=== PATIENT | female | born 1980 | race Two or more races ===

== ENCOUNTER 2017-05-13 17:37 | Inpatient (IN) | payer MEDICAID, MEDICARE ==
[2017-05-13 18:04] VITALS: BP 131/91
[2017-05-13] MEDS ORDERED: Albuterol/Ipratropium Neb 3 ML AERS HHN PRN (18:59)
[2017-05-13] MEDS ORDERED: KCL 20mEq/100mL Premix 20 MEQ/100 ML PIGGYBACK IV SCH (21:00)
[2017-05-13] MEDS ORDERED: Azithromycin 500 MG in Sodium Chloride 0.9% 250 ML IV SCH (21:00)
[2017-05-13] MEDS ORDERED: Cefepime 1 GM in Sodium Chloride 0.9% 50 ML IV SCH (21:00)
[2017-05-13] MEDS: Sodium Chloride 0.9% 1,000 ML IV SCH (21:10)
[2017-05-13] MEDS: Albuterol/Ipratropium Neb 3 ML AERS HHN SCH ×2 (21:55→23:35)
[2017-05-13] MEDS ORDERED: Potassium Chloride 20 mEq ER Tab PO ONE (23:13)
[2017-05-14] MEDS: Albuterol/Ipratropium Neb 3 ML AERS HHN SCH ×6 (03:21→23:09)
[2017-05-14] MEDS: Sodium Chloride 0.9% 1,000 ML IV SCH (06:45)
[2017-05-14 07:06] LABS: % BASOPHILS 0.1 % (0.0-2.0); % LYMPHOCYTES 15.1 % (20.0-50.0); % MONOCYTES 6.2 % (2.0-10.0); % NEUTROPHILS 76.6 % (40.0-80.0); EOSINOPHILE ABSOLUTE 0.2 Th/cmm (0.1-0.4); HEMOGLOBIN 12.8 gm/dL (12-16); LYMPHOCYTE ABSOLUTE 1.2 Th/cmm (1.5-3.0); MEAN CELL VOLUME 82.4 fl (81-100); MEAN CORPUSCULAR HEMOGLOBIN 27.4 pg (27.0-31.0); MEAN CORPUSCULAR HGB CONC 33.2 pg (28.0-36.0); MEAN PLATELET VOLUME 8.9 fl; MONOCYTE ABSOLUTE 0.5 Th/cmm (0.3-1.0); NEUTROPHILE ABSOLUTE 6.2 Th/cmm (1.8-8.0); RED BLOOD COUNT 4.69 Mil/cmm (3.80-5.10); RED CELL DISTRIBUTION WIDTH 12.7 % (11.5-20.0); WHITE BLOOD COUNT 8.1 Th/cmm (4.8-10.8)
[2017-05-14 07:16] LABS: HEMATOCRIT 38.6 % (41.0-60); PLATELET COUNT 226 Th/cmm (150-400)
[2017-05-14 07:29] LABS: ALBUMIN 3.4 gm/dL (3.7-5.3); ALKALINE PHOSPHATASE 179 U/L (34-104); BILIRUBIN,TOTAL 0.3 mg/dL (0.3-1.0); BUN - UREA NITROGEN 5 mg/dL (7-25); CALCIUM SERUM 8.9 mg/dL (8.6-10.3); CARBON DIOXIDE 25.1 mEq/L (21.0-31.0); CHLORIDE 109 mEq/L (98-107); CREATININE - SERUM 0.5 mg/dL (0.6-1.2); GFR AFRICAN-AMERICAN > 60.0 ml/min (>90); GFR NON AFRICAN-AMERICAN > 60.0 ml/min; GLUCOSE 119 mg/dL (70-105); MAGNESIUM 1.9 mg/dL (1.9-2.7); POTASSIUM SERUM 4.1 mEq/L (3.5-5.1); SGOT 19 U/L (13-39); SGPT/ALT 15 U/L (7-52); SODIUM SERUM 142 mEq/L (136-145); TOTAL PROTEIN,SERUM 6.7 gm/dL (6.0-8.3)
[2017-05-14] MEDS ORDERED: Magnesium Hydroxide (MOM) 30 mL UDC GT PRN (09:33)
[2017-05-14] MEDS: carBAMazepine 200 mg/10 mL UDC GT SCH ×2 (09:56→16:43)
[2017-05-14] MEDS: Docusate Sodium 100 mg/10 mL UD GT SCH (09:56)
[2017-05-14] MEDS: Pantoprazole 40 mg/Packet GT SCH (09:57)
[2017-05-14] MEDS: Multivitamin w/ Minerals Tab GT SCH (09:57)
[2017-05-14] MEDS: Levetiracetam 500 mg/5mL 5mL UDC GT SCH ×2 (10:20→16:43)
--- NOTE | 2017-05-14 11:05 | History & Physical ---
ADMIT DATE: CHIEF COMPLAINT: Shortness of breath, congestion, and fevers. HISTORY OF PRESENT ILLNESS: This is a 37-year-old female resident of [facility] who was transferred to [facility]'s ER given the above-mentioned complaints. It is unknown as to how long she had been having these symptoms, but at the ER, pertinent findings included an O2 sat of 86% on room air, temperature 100.6, lactic acid of 2.7, and a chest x-ray showing bibasilar atelectasis and possible infiltrates. Given insurance the issues, the patient was transferred last night to this facility and is currently residing in the telemetry crabtree. The patient has a history of mental retardation, quadriplegic, cerebral palsy, dysphagia, status post PEG, history of CHF, seizure disorder/epilepsy. Patient is not able to provide me with any history, but she is noticeably congested, on no apparent respiratory distress. PAST MEDICAL HISTORY: As noted above. PAST SURGICAL HISTORY: Includes a PEG placement. FAMILY HISTORY: Likely noncontributory. SOCIAL HISTORY: No tobacco, ETOH, or illicit drug usage. She lives at [facility] under the care of Dr. Kenney. ALLERGIES: NKDA. OUTPATIENT MEDICATIONS: DuoNeb every 4 hours p.r.n. for SOB, Keppra 1000 mg b.i.d., Tylenol every 4 hours p.r.n. for fever or pain, baclofen 10 mg t.i.d., calcium carbonate 1250 every day, Tegretol 500 mg b.i.d., Colace 100 mg every day, [place] 5/325 every 4 hours p.r.n. for severe pain, Vimpat 75 b.i.d., milk of magnesia 20 mL every day, multivitamins every day, Zofran 4 mg p.o. every 4 hours p.r.n. for nausea and vomiting, Protonix 40 mg b.i.d., and vitamin D 400 international units b.i.d. REVIEW OF SYSTEMS: Not able to be done given patient's condition. PHYSICAL EXAMINATION: VITAL SIGNS: Current temperature is 98.7, afebrile, pulse 85 to 92, BP 121/82, respirations 18, and sats 95-97% on 2 liters. GENERAL: Well-nourished, developmentally delayed female, in no acute distress. She is awake, but not able to follow commands. HEAD: Normocephalic and atraumatic. Pupils reactive to light. Extraocular movements are intact. NECK: Supple. There is no JVD or LAD. CARDIOVASCULAR: Regular rate with distant sounds. LUNGS: Coarse with bilateral rhonchi. No wheezing or crackles noted. ABDOMEN: Soft, supple, nontender, nondistended, normoactive bowel sounds. There is a PEG tube in place. EXTREMITIES: Lower extremity, there is no edema. LABORATORY DATA: White count 8.1, H and H 12/38 with platelet count 226. Sodium 142, potassium 4.1, chloride 109, CO2 25, BUN 5, creatinine 0.5, glucose 119, and calcium 8.9. Alkaline phosphatase 179, albumin 3.4, and mag was 1.9. Lactic acid level at the ER was 2.7. DIAGNOSTICS: EKG shows normal sinus rhythm at a rate of 100. Chest x-ray at the ER shows no noticeable or overt infiltrates, but there was criteria for basilar atelectasis. IMPRESSION: 1. Fever, sepsis, likely secondary to pulmonary infection. 2. Likely pneumonia, atelectasis versus bronchitis. 3. Respiratory insufficiency. 4. Elevated lactic acid level. 5. History of quadriplegic cerebral palsy. 6. History of compensated congestive heart failure. 7. History of seizure disorder. PLAN: The patient has been admitted to the telemetry crabtree for further management and care. The patient has been placed on cefepime, Zithromax, and pulmonary toilet including frequent suctioning by RT. She has been morrell-cultured including sputum C and S, and blood cultures, and she also has been placed on aspiration precautions. She will be kept on her medications as scheduled and she will be resuming her PEG feedings at a lower rate for the time being. JOB# [id number] FERMIN
--- NOTE | 2017-05-14 11:11 | Diagnostic Imaging Report ---
Portable chest x-ray HISTORY: Shortness of breath The heart size is difficult to assess with portable technique in a poor inspiration. There is a scoliosis of the thoracic spine convexity to the right. Compared with a prior exam of June 20, 2015, a linear density is seen in the right lung base consistent with scarring. No acute or other focal processes. IMPRESSION: 1. Chronic linear density right lower lobe consistent with scarring 2. No other acute focal processes 3. Severe scoliosis
[2017-05-14 16:19] LABS: URINE MICROSCOPIC INDICATED? YES; URINE SOURCE CLEAN C
[2017-05-14 16:21] LABS: URINE BILIRUBIN NEGATIVE (NEGATIVE); URINE BLOOD NEGATIVE (NEGATIVE); URINE GLUCOSE (UA) NEGATIVE (NEGATIVE); URINE KETONE 15 mg/dL (NEGATIVE); URINE LEUKOCYTE ESTERASE NEGATIVE (NEGATIVE); URINE NITRATE NEGATIVE (NEGATIVE); URINE PH 6.5 (4.6 - 8.0); URINE PROTEIN 30 mg/dL (NEGATIVE); URINE UROBILINOGEN 0.2 E.U./dL (0.2 - 1.0)
[2017-05-14 16:30] LABS: URINE CLARITY HAZY (CLEAR); URINE COLOR YELLOW
[2017-05-14 16:33] LABS: URINE BACTERIA FEW /hpf (NONE SEEN); URINE COARSE GRANULAR CAST 0-2 /lpf (NONE SEEN); URINE EPITHELIAL CELLS MODERATE /lpf (FEW); URINE FINE GRANULAR CAST 0-2 /lpf (NONE SEEN)
[2017-05-14] MEDS ORDERED: Albuterol/Ipratropium Neb 3 ML AERS HHN SCH (19:00)
--- NOTE | 2017-05-14 21:49 | Consultation ---
DATE OF CONSULTATION: 05/14/2017 REFERRING PHYSICIAN: Dr. Toure. Thank you very much, Dr. Toure for this consultation. HISTORY OF PRESENT ILLNESS: This is a 37-year-old female with history of mental disability, contracted presents with cough, congestion and shortness of breath, admitted for further treatment and management. The patient appears to be congested, unable to give any history, is noncommunicative, but awake. PHYSICAL EXAMINATION: VITAL SIGNS: Temperature 98.7, pulse 85, respiration 18, blood pressure is 120/82, saturation 94% to 97%. HEENT: Atraumatic and normocephalic. Pupils round and reactive to light and accommodation. Ears, nose and throat, normal. NECK: Supple. No JVD. CHEST: There is rhonchi bilaterally. No wheezing. HEART: Regular rate and rhythm. ABDOMEN: Soft. EXTREMITIES: No edema. LABORATORY DATA: WBC is 8.1, hemoglobin 12.8, hematocrit 38.6, platelets is 226. Sodium 142, potassium 4.1, BUN is 15.5, albumin 3.4. Chest x-ray, no obvious infiltrate, atelectasis right base. IMPRESSION: This is a 37-year-old female with, 1. Respiratory failure. 2. Acute bronchitis, pneumonia. 3. Dysphagia and weakness. PLAN: 1. We will continue nebulizer treatment. 2. Antibiotics. 3. Pulmonary toilet and supportive care. I will follow the patient with you. Thank you very much for this consultation. JOB# [id number]
[2017-05-15] MEDS: Albuterol/Ipratropium Neb 3 ML AERS HHN SCH ×6 (03:12→22:33)
[2017-05-15] MEDS: Levetiracetam 500 mg/5mL 5mL UDC GT SCH ×2 (09:59→18:00)
[2017-05-15] MEDS: carBAMazepine 200 mg/10 mL UDC GT SCH ×2 (09:59→18:01)
[2017-05-15] MEDS: Docusate Sodium 100 mg/10 mL UD GT SCH (09:59)
[2017-05-15] MEDS: Multivitamin w/ Minerals Tab GT SCH (10:00)
[2017-05-15] MEDS: Pantoprazole 40 mg/Packet GT SCH (10:00)
[2017-05-15 14:29] LABS: % BASOPHILS 0.7 % (0.0-2.0); % EOSINOPHILS 4.1 % (0.0-5.0); % LYMPHOCYTES 21.5 % (20.0-50.0); % MONOCYTES 8.5 % (2.0-10.0); % NEUTROPHILS 65.2 % (40.0-80.0); EOSINOPHILE ABSOLUTE 0.3 Th/cmm (0.1-0.4); HEMATOCRIT 39.1 % (41.0-60); HEMOGLOBIN 12.8 gm/dL (12-16); LYMPHOCYTE ABSOLUTE 1.4 Th/cmm (1.5-3.0); MEAN CELL VOLUME 82.4 fl (81-100); MEAN CORPUSCULAR HGB CONC 32.7 pg (28.0-36.0); MEAN PLATELET VOLUME 8.5 fl; MONOCYTE ABSOLUTE 0.6 Th/cmm (0.3-1.0); NEUTROPHILE ABSOLUTE 4.4 Th/cmm (1.8-8.0); PLATELET COUNT 253 Th/cmm (150-400); RED BLOOD COUNT 4.74 Mil/cmm (3.80-5.10); RED CELL DISTRIBUTION WIDTH 12.6 % (11.5-20.0); WHITE BLOOD COUNT 6.7 Th/cmm (4.8-10.8)
[2017-05-15] MEDS: methylPREDNISolone SS 40 mg Vial IVP SCH ×2 (14:34→20:15)
[2017-05-15] MEDS: Hydrocodone/APAP 5mg/325mg Tab PO PRN (18:00)
[2017-05-16] MEDS: Sodium Chloride 0.9% 1,000 ML IV SCH (02:20)
[2017-05-16] MEDS: Albuterol/Ipratropium Neb 3 ML AERS HHN SCH ×5 (03:05→22:19)
[2017-05-16] MEDS: methylPREDNISolone SS 40 mg Vial IVP SCH ×3 (04:23→20:47)
--- NOTE | 2017-05-16 08:35 | Diagnostic Imaging Report ---
CHEST X-RAY: AP view INDICATION: Pneumonia COMPARISON: 05/14/2017 FINDINGS: Exam is limited due to body habitus and scoliosis. Congestive changes are seen with right perihilar infiltrate. Cardiomegaly is noted. There is elevation of the right diaphragm. IMPRESSION: Congestive changes and right perihilar infiltrates. Cardiomegaly.
[2017-05-16] MEDS: Docusate Sodium 100 mg/10 mL UD GT SCH (09:23)
[2017-05-16] MEDS: Multivitamin w/ Minerals Tab GT SCH (09:23)
[2017-05-16] MEDS: Pantoprazole 40 mg/Packet GT SCH (09:25)
[2017-05-16] MEDS: Levetiracetam 500 mg/5mL 5mL UDC GT SCH ×2 (09:25→16:33)
[2017-05-16 10:06] LABS: ANION GAP 17.1 (7.0-16.0); BUN - UREA NITROGEN 9 mg/dL (7-25); CALCIUM SERUM 9.7 mg/dL (8.6-10.3); CARBON DIOXIDE 21.9 mEq/L (21.0-31.0); CHLORIDE 106 mEq/L (98-107); CREATININE - SERUM 0.5 mg/dL (0.6-1.2); GFR AFRICAN-AMERICAN > 60.0 ml/min (>90); GFR NON AFRICAN-AMERICAN > 60.0 ml/min; GLUCOSE 138 mg/dL (70-105); SODIUM SERUM 139 mEq/L (136-145)
[2017-05-16 10:54] LABS: % BASOPHILS 2.7 % (0.0-2.0); % EOSINOPHILS 0.2 % (0.0-5.0); % MONOCYTES 1.4 % (2.0-10.0); % NEUTROPHILS 84.7 % (40.0-80.0); BASOPHILE ABSOLUTE 0.2 Th/cumm (0-0.2); HEMATOCRIT 40.6 % (41.0-60); HEMOGLOBIN 13.2 gm/dL (12-16); LYMPHOCYTE ABSOLUTE 0.9 Th/cmm (1.5-3.0); MEAN CELL VOLUME 81.9 fl (81-100); MEAN CORPUSCULAR HEMOGLOBIN 26.7 pg (27.0-31.0); MEAN CORPUSCULAR HGB CONC 32.6 pg (28.0-36.0); MEAN PLATELET VOLUME 9.5 fl; MONOCYTE ABSOLUTE 0.1 Th/cmm (0.3-1.0); PLATELET COUNT 299 Th/cmm (150-400); RED BLOOD COUNT 4.95 Mil/cmm (3.80-5.10); RED CELL DISTRIBUTION WIDTH 12.4 % (11.5-20.0)
[2017-05-16 10:55] LABS: WHITE BLOOD COUNT 8.2 Th/cmm (4.8-10.8)
[2017-05-16] MEDS: carBAMazepine 200 mg/10 mL UDC GT SCH ×2 (11:47→16:33)
[2017-05-16] MEDS ORDERED: Probiotic Screen MC PRN (16:52)
[2017-05-17] MEDS: Albuterol/Ipratropium Neb 3 ML AERS HHN SCH ×6 (02:59→22:37)
[2017-05-17] MEDS: methylPREDNISolone SS 40 mg Vial IVP SCH ×3 (04:27→20:56)
[2017-05-17 06:20] LABS: % BASOPHILS 0.7 % (0.0-2.0); % EOSINOPHILS 0.4 % (0.0-5.0); % LYMPHOCYTES 14.2 % (20.0-50.0); % MONOCYTES 3.7 % (2.0-10.0); HEMATOCRIT 40.9 % (41.0-60); HEMOGLOBIN 13.5 gm/dL (12-16); MEAN CELL VOLUME 83.9 fl (81-100); MEAN CORPUSCULAR HEMOGLOBIN 27.7 pg (27.0-31.0); MEAN PLATELET VOLUME 9.1 fl; MONOCYTE ABSOLUTE 0.3 Th/cmm (0.3-1.0); NEUTROPHILE ABSOLUTE 5.6 Th/cmm (1.8-8.0); PLATELET COUNT 284 Th/cmm (150-400); RED BLOOD COUNT 4.87 Mil/cmm (3.80-5.10); RED CELL DISTRIBUTION WIDTH 12.7 % (11.5-20.0); WHITE BLOOD COUNT 6.9 Th/cmm (4.8-10.8)
[2017-05-17 06:31] LABS: ANION GAP 12.2 (7.0-16.0); BUN - UREA NITROGEN 13 mg/dL (7-25); CALCIUM SERUM 8.7 mg/dL (8.6-10.3); CHLORIDE 105 mEq/L (98-107); CREATININE - SERUM 0.5 mg/dL (0.6-1.2); GFR AFRICAN-AMERICAN > 60.0 ml/min (>90); GFR NON AFRICAN-AMERICAN > 60.0 ml/min; GLUCOSE 130 mg/dL (70-105); POTASSIUM SERUM 4.2 mEq/L (3.5-5.1); SODIUM SERUM 141 mEq/L (136-145)
[2017-05-17] MEDS: Pantoprazole 40 mg/Packet GT SCH (09:35)
[2017-05-17] MEDS: Docusate Sodium 100 mg/10 mL UD GT SCH (09:35)
[2017-05-17] MEDS: Multivitamin w/ Minerals Tab GT SCH (09:35)
[2017-05-17] MEDS: Levetiracetam 500 mg/5mL 5mL UDC GT SCH ×2 (09:35→17:23)
[2017-05-17] MEDS: carBAMazepine 200 mg/10 mL UDC GT SCH ×2 (10:18→17:22)
[2017-05-18] MEDS: Albuterol/Ipratropium Neb 3 ML AERS HHN SCH ×6 (02:42→23:23)
[2017-05-18] MEDS: methylPREDNISolone SS 40 mg Vial IVP SCH ×3 (05:48→20:35)
[2017-05-18] MEDS: Sodium Chloride 0.9% 1,000 ML IV SCH ×3 (06:00→20:40)
[2017-05-18] MEDS: carBAMazepine 200 mg/10 mL UDC GT SCH ×2 (08:51→16:22)
[2017-05-18] MEDS: Pantoprazole 40 mg/Packet GT SCH (08:51)
[2017-05-18] MEDS: Multivitamin w/ Minerals Tab GT SCH (08:52)
[2017-05-18] MEDS: Levetiracetam 500 mg/5mL 5mL UDC GT SCH ×2 (08:52→16:22)
[2017-05-18] MEDS: Docusate Sodium 100 mg/10 mL UD GT SCH (08:52)
--- NOTE | 2017-05-18 09:26 | Diagnostic Imaging Report ---
Exam: Portable chest x-ray. HISTORY: Bronchitis. Findings: Portable examination of chest at 0802 hours reviewed. The study compared to the prior exam of 10/04/2016. The study demonstrates congestive heart failure changes bilaterally. The spinal structures midline the heart is not enlarged. Scoliotic convexity thoracic spine to the right appreciated. Degenerative osteopenia is noted throughout. IMPRESSION congestive heart failure. Small left pleural effusion cannot be excluded. Clinical correlation follow-up exam is recommended
--- NOTE | 2017-05-18 22:35 | Progress Notes ---
DATE: 05/18/2017 PULMONARY PROGRESS NOTE: This is on behalf of Dr. Garcia. PROBLEM LIST: 1. Underlying bilateral tracheobronchitis. 2. Pneumonia. 3. Underlying physically and mentally challenged related issues. SYMPTOMS: The patient is not communicative. Has some secretory noise, but no respiratory distress, etc. PHYSICAL EXAMINATION: VITAL SIGNS: Temperature is 97.6, saturation is 99 on 2 liters per minute. NECK: Veins not visualized. CHEST: Shows diminished air entry with occasional rhonchi. HEART: Regular. ABDOMEN: Soft, nontender. EXTREMITIES: Show some atrophic changes, otherwise unremarkable. LABORATORY DATA: The patient's chest x-ray shows left haziness, but otherwise unremarkable. There are some interstitial changes compared to x-rays before. ASSESSMENT: The patient is clinically stable, most likely this is tracheobronchitis with poor ability to mobilize tracheobronchial secretions complicated by obstructive sleep apnea syndrome and significant poor ability to mobilize tracheobronchial secretions. PLANS AND SUGGESTIONS: We will go ahead and continue aggressive respiratory care, inhalation treatment. We will follow through another lab as well as the cultures in the next 24-48 hours and go from there. JOB# [id number]
[2017-05-19] MEDS: Albuterol/Ipratropium Neb 3 ML AERS HHN SCH ×6 (03:41→23:41)
[2017-05-19] MEDS: methylPREDNISolone SS 40 mg Vial IVP SCH ×3 (04:39→22:27)
[2017-05-19] MEDS: Sodium Chloride 0.9% 1,000 ML IV SCH (04:41)
[2017-05-19 07:19] LABS: HEMATOCRIT 39.1 % (41.0-60); HEMOGLOBIN 12.9 gm/dL (12-16); MEAN CELL VOLUME 82.6 fl (81-100); MEAN CORPUSCULAR HEMOGLOBIN 27.3 pg (27.0-31.0); MEAN PLATELET VOLUME 8.7 fl; MONOCYTE ABSOLUTE 0.4 Th/cmm (0.3-1.0); PLATELET COUNT 318 Th/cmm (150-400); RED BLOOD COUNT 4.74 Mil/cmm (3.80-5.10); RED CELL DISTRIBUTION WIDTH 12.6 % (11.5-20.0)
[2017-05-19 07:38] LABS: WHITE BLOOD COUNT 14.4 Th/cmm (4.8-10.8)
[2017-05-19 07:40] LABS: ALB/GLOB RATIO 1.1 (1.0-1.8); ALBUMIN 3.7 gm/dL (3.7-5.3); ALKALINE PHOSPHATASE 175 U/L (34-104); ANION GAP 16.4 (7.0-16.0); BILIRUBIN,TOTAL 0.2 mg/dL (0.3-1.0); BUN - UREA NITROGEN 8 mg/dL (7-25); CALCIUM SERUM 9.2 mg/dL (8.6-10.3); CARBON DIOXIDE 27.8 mEq/L (21.0-31.0); CHLORIDE 102 mEq/L (98-107); CREATININE - SERUM 0.6 mg/dL (0.6-1.2); GFR AFRICAN-AMERICAN > 60.0 ml/min (>90); GFR NON AFRICAN-AMERICAN > 60.0 ml/min; GLUCOSE 126 mg/dL (70-105); MAGNESIUM 2.2 mg/dL (1.9-2.7); POTASSIUM SERUM 4.2 mEq/L (3.5-5.1); SGOT 15 U/L (13-39); SGPT/ALT 17 U/L (7-52); SODIUM SERUM 142 mEq/L (136-145)
[2017-05-19 09:28] LABS: ALLEN TEST Positive; pH 7.51 (7.35-7.45)
[2017-05-19] MEDS: Docusate Sodium 100 mg/10 mL UD GT SCH (10:21)
[2017-05-19] MEDS: Multivitamin w/ Minerals Tab GT SCH (10:22)
[2017-05-19] MEDS: Pantoprazole 40 mg/Packet GT SCH (10:22)
[2017-05-19] MEDS: Levetiracetam 500 mg/5mL 5mL UDC GT SCH ×2 (10:23→16:10)
[2017-05-19] MEDS: carBAMazepine 200 mg/10 mL UDC GT SCH ×2 (11:00→16:14)
[2017-05-19] MEDS: Hydrocodone/APAP 5mg/325mg Tab PO PRN (13:20)
--- NOTE | 2017-05-19 21:16 | Progress Notes ---
DATE: 05/19/2017 PROBLEM LIST: 1. Acute asthmatic bronchitis. 2. Pneumonitis. 3. Physically and mentally developmental challenged issues. SYMPTOMS: The patient is awake, but not too much communicative, periodically fidgety, but otherwise no respiratory distress. Currently, on O2 by nasal cannula. PHYSICAL EXAMINATION: VITAL SIGNS: Temperature is 98.7, blood pressure 117/56, saturation 92% on 2 liters of oxygen. NECK: Veins not visualized. CHEST: Shows scattered secretory noise with diminished air entry. HEART: Regular. ABDOMEN: Soft, nontender. EXTREMITIES: Shows no peripheral edema. ASSESSMENT: The patient clinically appears to be stable, not significantly changed. PLANS AND SUGGESTIONS: We will repeat chest x-ray tomorrow and continue rest of the treatment. JOB# [id number]
[2017-05-20] MEDS: Albuterol/Ipratropium Neb 3 ML AERS HHN SCH ×6 (03:17→22:31)
[2017-05-20] MEDS: methylPREDNISolone SS 40 mg Vial IVP SCH ×3 (04:37→21:16)
[2017-05-20 06:43] LABS: RED CELL DISTRIBUTION WIDTH 12.7 % (11.5-20.0)
[2017-05-20 06:50] LABS: % EOSINOPHILS 0.3 % (0.0-5.0); % LYMPHOCYTES 9.6 % (20.0-50.0); % MONOCYTES 1.4 % (2.0-10.0); % NEUTROPHILS 88.7 % (40.0-80.0); HEMATOCRIT 39.7 % (41.0-60); HEMOGLOBIN 13.2 gm/dL (12-16); LYMPHOCYTE ABSOLUTE 1.3 Th/cmm (1.5-3.0); MEAN CELL VOLUME 83.1 fl (81-100); MEAN CORPUSCULAR HEMOGLOBIN 27.6 pg (27.0-31.0); MEAN CORPUSCULAR HGB CONC 33.2 pg (28.0-36.0); MEAN PLATELET VOLUME 9.7 fl; MONOCYTE ABSOLUTE 0.2 Th/cmm (0.3-1.0); NEUTROPHILE ABSOLUTE 12.1 Th/cmm (1.8-8.0); RED BLOOD COUNT 4.78 Mil/cmm (3.80-5.10)
[2017-05-20 06:52] LABS: WHITE BLOOD COUNT 13.6 Th/cmm (4.8-10.8)
[2017-05-20 06:53] LABS: PLATELET COUNT 208 Th/cmm (150-400)
[2017-05-20] MEDS: carBAMazepine 200 mg/10 mL UDC GT SCH ×2 (09:53→16:46)
[2017-05-20] MEDS: Levetiracetam 500 mg/5mL 5mL UDC GT SCH ×2 (09:55→16:46)
[2017-05-20] MEDS: Docusate Sodium 100 mg/10 mL UD GT SCH (09:55)
[2017-05-20] MEDS: Multivitamin w/ Minerals Tab GT SCH (09:55)
[2017-05-20] MEDS: Pantoprazole 40 mg/Packet GT SCH (09:56)
[2017-05-20 10:00] LABS: ALLEN TEST Positive; pH 7.44 (7.35-7.45)
--- NOTE | 2017-05-20 10:23 | Diagnostic Imaging Report ---
CHEST X-RAY: AP view INDICATION: Shortness of breath COMPARISON: 05/18/2017 FINDINGS: Right basal atelectasis versus focal infiltrate is noted. There may be a small right effusion. Cardiomegaly is noted. Spinal scoliosis is noted. There is gaseous distention of the stomach. IMPRESSION: Right basal atelectasis versus focal infiltrate.
[2017-05-20] MEDS: Sodium Chloride 0.9% 1,000 ML IV SCH (14:31)
--- NOTE | 2017-05-20 21:15 | Progress Notes ---
DATE: 05/20/2017 PROBLEM LIST: 1. Acute asthmatic bronchitis. 2. Questionable pneumonia with ____. 3. Underlying physical and mentally development delay. SYMPTOMS: The patient is awake, not in respiratory distress. No communication could be done. PHYSICAL EXAMINATION: VITAL SIGNS: Temperature is 97.4, blood pressure 133/64, respiratory rate is 18, saturation is 100% on 2 liters. NECK: Veins not visualized. CHEST: Shows occasional rhonchi with generalized diminished air entry. HEART: Regular. ABDOMEN: Soft, nontender. EXTREMITIES: Shows no peripheral edema. LABORATORY DATA: The patient's chest x-ray shows very minimal atelectasis on the right basal area. The patient's other laboratory studies, white count is very slowly trending down today from yesterday 13.6, hemoglobin 13.2. ABG, pO2 was 147 on 2 liters of oxygen. ASSESSMENT: The patient clinically appears to be stable and improving. PLANS AND SUGGESTIONS: We will continue current treatment, question mobilization and will repeat chest x-ray in the next 24-48 hours again and go from there. JOB# [id number]
[2017-05-21] MEDS: Albuterol/Ipratropium Neb 3 ML AERS HHN SCH ×4 (03:05→14:36)
[2017-05-21] MEDS: methylPREDNISolone SS 40 mg Vial IVP SCH ×2 (04:46→14:36)
[2017-05-21 06:19] LABS: % EOSINOPHILS 0.6 % (0.0-5.0); % LYMPHOCYTES 16.4 % (20.0-50.0); % MONOCYTES 5.3 % (2.0-10.0); % NEUTROPHILS 77.7 % (40.0-80.0); EOSINOPHILE ABSOLUTE 0.1 Th/cmm (0.1-0.4); HEMATOCRIT 41.8 % (41.0-60); HEMOGLOBIN 13.7 gm/dL (12-16); LYMPHOCYTE ABSOLUTE 1.6 Th/cmm (1.5-3.0); MEAN CELL VOLUME 82.5 fl (81-100); MEAN CORPUSCULAR HGB CONC 32.7 pg (28.0-36.0); MEAN PLATELET VOLUME 8.9 fl; MONOCYTE ABSOLUTE 0.5 Th/cmm (0.3-1.0); NEUTROPHILE ABSOLUTE 7.6 Th/cmm (1.8-8.0); PLATELET COUNT 283 Th/cmm (150-400); RED BLOOD COUNT 5.06 Mil/cmm (3.80-5.10); WHITE BLOOD COUNT 9.8 Th/cmm (4.8-10.8)
[2017-05-21 06:34] LABS: ANION GAP 11.5 (7.0-16.0); BUN - UREA NITROGEN 14 mg/dL (7-25); CALCIUM SERUM 9.6 mg/dL (8.6-10.3); CARBON DIOXIDE 31.7 mEq/L (21.0-31.0); CHLORIDE 101 mEq/L (98-107); CREATININE - SERUM 0.5 mg/dL (0.6-1.2); GFR AFRICAN-AMERICAN > 60.0 ml/min (>90); GFR NON AFRICAN-AMERICAN > 60.0 ml/min; GLUCOSE 130 mg/dL (70-105); POTASSIUM SERUM 4.2 mEq/L (3.5-5.1); SODIUM SERUM 140 mEq/L (136-145)
[2017-05-21 06:56] LABS: MAGNESIUM 2.1 mg/dL (1.9-2.7)
[2017-05-21] MEDS: carBAMazepine 200 mg/10 mL UDC GT SCH ×2 (09:52→16:21)
[2017-05-21] MEDS: Levetiracetam 500 mg/5mL 5mL UDC GT SCH ×2 (09:53→16:22)
[2017-05-21] MEDS: Docusate Sodium 100 mg/10 mL UD GT SCH (09:53)
[2017-05-21] MEDS: Multivitamin w/ Minerals Tab GT SCH (09:54)
[2017-05-21] MEDS: Pantoprazole 40 mg/Packet GT SCH (09:54)
--- NOTE | 2017-05-22 05:00 | Progress Notes ---
DATE: 05/21/2017 PULMONARY PROGRESS NOTE PROBLEMS: 1. Pneumonitis, improving. 2. Asthmatic bronchitis. 3. Significant physically and mentally development related issues, noncommunicative, not in acute distress. He is planning process of being discharged. No respiratory distress, etc. PHYSICAL EXAMINATION: VITAL SIGNS: Temperature is 98.9, blood pressure 126/70, saturation is 97% on room air. NECK: Veins not visualized. CHEST: Shows occasional rhonchi with diminished air entry. HEART: Regular. ABDOMEN: Soft, nontender. LABORATORY DATA: White count is totally normal and hemoglobin 13. ASSESSMENT: The patient is clinically stable, significantly improved. PLANS AND SUGGESTIONS: We will go ahead and continue current treatment, might need to have follow up x-ray as an outpatient. JOB# [id number]
--- NOTE | 2017-05-22 19:11 | Discharge Summary ---
DATE OF DISCHARGE: 05/21/2017 ADMITTING DIAGNOSES: 1. Fever, sepsis likely secondary to pneumonia versus bronchitis. 2. Pneumonia/atelectasis versus bronchitis. 3. Hypoxic respiratory insufficiency. 4. Elevated lactic acid level. SECONDARY DIAGNOSES: Include: 1. History of quadriplegic cerebral palsy. 2. History of compensated congestive heart failure. 3. History of seizure disorder. 4. Mental retardation/intellectual disability. 5. History of dysphagia, status post PEG placement. DISCHARGE DIAGNOSES: 1. Fever, sepsis likely secondary to pneumonia, resolved. 2. Pneumonia/atelectasis versus bronchitis, improved. 3. Respiratory insufficiency, improved. 4. Elevated lactic acid level, resolved. CONSULTANTS: Pulmonary, Dr. Garcia. MAJOR PROCEDURES: There were no major procedures done during this admission. BRIEF HOSPITAL COURSE: A 37-year-old female resident of [facility] who was transferred to [facility] ER, given a day of shortness of breath, congestion and fevers. Pertinent findings at the ER included an O2 sat of 86% on room air, temperature of 100.6, lactic acid of 2.7. Chest x-ray showing bibasilar atelectasis versus infiltrates. Given insurance issues, the patient was transferred to this facility for further management and care and was admitted to a telemetry crabtree. She was placed on IV fluids, IV antibiotics (cefepime and Zithromax) as well as pulmonary toilet and frequent suctioning by respiratory therapy. She was also placed on oxygen to keep sats above 92%. Initial x-ray showed chronic linear density at the right lower lobe consistent with scarring, but no other abnormalities were noted. The patient was also seen by Pulmonary Medicine and was eventually also placed on IV steroids given the level of her congestion. She was maintained on her other medications via G-tube. After admission, the patient remained clinically stable, although at times persistently congested responding to frequent suctioning. Vital sign escobar she remained afebrile and her labs also remained basically within normal limits with initial white count of 8.1. On 05/19, her white count did up to 14.4, which was attributed mostly her to the IV steroids she was on. However, she had no fever and no other signs of sepsis. Initial lactic acid upon admission was 1.88. ABGs done on 05/20 showed a pCO2 of 54 with a pO2 of 147 and her white count on 05/21 showed improvement with a level of 9.8. MEDICATIONS ON DISCHARGE: Levaquin 500 mg q. day x 10 days, prednisone taper, Phenergan DM 10 mL q. 4 p.r.n. for cough, DuoNeb q. 4 hours while awake and p.r.n. Mucomyst inhalation 20% q. 6 hours, baclofen 10 mg t.i.d., Tylenol 650 q. 4 hours p.r.n. for fever and pain, Tegretol 500 mg b.i.d., docusate sodium 100 mg daily, [place] 5/325 mg q. 4 p.r.n. for pain, lacosamide 75 mg b.i.d., Keppra 1000 mg b.i.d., milk of magnesia q. day p.r.n., Protonix 40 mg daily, vitamin D 400 mg b.i.d. CONDITION ON DISCHARGE: Stable. DISPOSITION: The patient was discharged to her assisted living facility [facility] under Dr. Kenney. [facility]# [id number]
== END 2017-05-21 17:30 | DRG 871 ==
LOC: MSI 17:37
PROVIDERS: ADMIT Internal Medicine; ATTEND Internal Medicine
DX: A41.9 Sepsis, unspecified organism (principal); J18.9 Pneumonia, unspecified organism; J96.90 Respiratory failure, unspecified, unspecified whether with hypoxia or hypercapnia; G82.50 Quadriplegia, unspecified; I50.9 Heart failure, unspecified; J98.11 Atelectasis; R13.10 Dysphagia, unspecified; G80.9 Cerebral palsy, unspecified; G40.909 Epilepsy, unspecified, not intractable, without status epilepticus; F79 Unspecified intellectual disabilities; J20.9 Acute bronchitis, unspecified; G47.33 Obstructive sleep apnea (adult) (pediatric); Z93.1 Gastrostomy status
CPT/HCPCS: 36415-UA; 36600-90; 71010-TC; 80048-TC; 80053-TC; 81001-TC; 82803-TC; 82948-90; 83605; 83735-TC; 83880-TC; 84132-TC; 84703-TC; 85025-TC; 87070; 94640; 94668; 94760; J0456; J0692; J1940; J2920; J7030; J7040; Z7610

== ENCOUNTER 2018-03-02 17:35 | Inpatient (IN) | payer MEDICARE, MEDICAID ==
[2018-03-02 18:23] LABS: % EOSINOPHILS 6.1 % (0.0-5.0); % LYMPHOCYTES 25.2 % (20.0-50.0); % MONOCYTES 4.8 % (2.0-10.0); % NEUTROPHILS 60.9 % (40.0-80.0); BASOPHILE ABSOLUTE 0.3 Th/cumm (0-0.2); EOSINOPHILE ABSOLUTE 0.6 Th/cmm (0.1-0.4); HEMATOCRIT 44.9 % (41.0-60); HEMOGLOBIN 14.7 gm/dL (12-16); LYMPHOCYTE ABSOLUTE 2.3 Th/cmm (1.5-3.0); MEAN CELL VOLUME 83.2 fl (81-100); MEAN CORPUSCULAR HEMOGLOBIN 27.2 pg (27.0-31.0); MEAN CORPUSCULAR HGB CONC 32.7 pg (28.0-36.0); MEAN PLATELET VOLUME 9.3 fl; MONOCYTE ABSOLUTE 0.4 Th/cmm (0.3-1.0); NEUTROPHILE ABSOLUTE 5.5 Th/cmm (1.8-8.0); RED BLOOD COUNT 5.39 Mil/cmm (3.80-5.10); RED CELL DISTRIBUTION WIDTH 12.7 % (11.5-20.0); WHITE BLOOD COUNT 9.1 Th/cmm (4.8-10.8)
--- NOTE | 2018-03-02 18:31 | ED Physician Chart ---
ED Chief Complaint/HPI - Patient Information Allergies:: Allergies Allergy/AdvReac Type Severity Reaction Status Date / Time No Known Drug Allergies Allergy Verified 05/13/17 18:02 Vitals:: Vital Signs - 8 hr 03/02/18 18:21 Temp 98.3 F HR 87 RR 21 BP 118/71 O2 Sat % 98 <Miki Adams - Last Filed: 03/02/18 20:54> - Patient Information Date Seen:: 03/02/18 Time Seen:: 18:21 Chief Complaint:: cough and congestion History of Present Illness:: cough and congestion in a patient with a known h/o pneumonia. Allergies:: Allergies Allergy/AdvReac Type Severity Reaction Status Date / Time No Known Drug Allergies Allergy Verified 05/13/17 18:02 Vitals:: Vital Signs - 8 hr 03/02/18 18:21 Temp 98.3 F HR 87 RR 21 BP 118/71 O2 Sat % 98 Historian:: EMS Review:: Old Chart Reviewed, Transfer documents Reviewed <Beckie Marvin - Last Filed: 03/06/18 10:53> ED Review of Systems - Review of Systems General/Constitutional: No fever, No chills, No weight loss, No weakness, No diaphoresis, No edema, No loss of appetite Skin: No skin lesions, No rash, No bruising Head: No headache, No light-headedness Eyes: No loss of vision, No pain, No diplopia ENT: No earache, No nasal drainage, No sore throat, No tinnitus Neck: No neck pain, No swelling, No thyromegaly, No stiffness, No mass noted Cardio Vascular: No chest pain, No palpitations, No PND, No orthopnea, No edema Pulmonary: Cough GI: No nausea, No vomiting, No diarrhea, No pain, No melena, No hematochezia, No constipation, No hematemesis G/U: No dysuria, No frequency, No hematuria Musculoskeletal: No bone or joint pain, No back pain, No muscle pain Endocrine: No polyuria, No polydipsia Psychiatric: No prior psych history, No depression, No anxiety, No suicidal ideation Hematopoietic: No bruising, No lymphadenopathy Allergic/Immuno: No urticaria, No angioedema Neurological: No syncope, No focal symptoms, No weakness, No paresthesia, No headache, No seizure, No dizziness, No confusion, No vertigo <Beckie Marvin - Last Filed: 03/06/18 10:53> ED Past Medical History - Past Medical History Obtainable: No Past Medical History: Other (mental retardation) <Beckie Marvin - Last Filed: 03/06/18 10:53> Family Medical History - Family Member Mother History Unknown: Yes <Beckie Marvin - Last Filed: 03/06/18 10:53> ED Physical Exam - Physical Examination General/Constitutional: Awake Other Gen/Cons comments:: Down's syndrome with microcephaly. Head: Atraumatic Other Head comments:: microcephaly Eyes: Lids, conjuctiva normal Other Eyes comments:: doesn't follow directions. ENMT: Nasal exam nl Neck: Nontender, No nuchal rigidity Other Respiratory comments:: decreased breath sounds at bases Cardio Vascular: RRR GI: No tenderness/rebounding/guarding Other GI comments:: g tube with evidence of prior akin around it. : No CVA tenderness Extremities: No tenderness or effusion, Full ROM Other Neuro/Psych comments:: more somnolent. awakens easily to voice. <Beckie Marvin - Last Filed: 03/06/18 10:53> ED Labs/Radiology/EKG Results - Lab Results Results: Laboratory Tests 03/02/18 03/02/18 03/02/18 17:43 18:15 18:15 WBC 9.1 RBC 5.39 H Hgb 14.7 Hct 44.9 MCV 83.2 MCH 27.2 MCHC Differential 32.7 RDW 12.7 Plt Count 82 L MPV 9.3 Neutrophils % 60.9 Lymphocytes % 25.2 Monocytes % 4.8 Eosinophils % 6.1 H Basophils % 3.0 H Sodium 134 L Potassium 4.1 Chloride 101 Carbon Dioxide 22.2 Anion Gap 14.9 BUN 15 Creatinine 0.4 L Est GFR ( Amer) > 60.0 Est GFR (Non-Af Amer) > 60.0 BUN/Creatinine Ratio 37.5 Glucose 79 Calcium 9.3 Phosphorus 3.5 Magnesium 2.1 Total Bilirubin 0.3 AST 26 ALT 11 Alkaline Phosphatase 186 H Troponin I B-Natriuretic Peptide Total Protein 6.7 Albumin 3.4 L Globulin 3.3 Albumin/Globulin Ratio 1.0 Urine Source CATH Urine Color YELLOW Urine Clarity CLEAR Urine pH 7.0 Ur Specific [place] 1.010 Urine Protein NEGATIVE Urine Glucose (UA) NEGATIVE Urine Ketones NEGATIVE Urine Blood NEGATIVE Urine Nitrate NEGATIVE Urine Bilirubin NEGATIVE Urine Urobilinogen 0.2 Ur Leukocyte Esterase NEGATIVE Urine RBC 0-2 Urine WBC 2-5 Ur Epithelial Cells FEW Amorphous Sediment MODERATE PHOSPHATES Urine Bacteria FEW Urine Test Urine Opiates Screen Urine Methadone Screen Ur Barbiturates Screen Ur Tricyclics Screen Ur Phencyclidine Scrn Amphetamines Screen U Methamphetamines Scrn U Benzodiazepines Scrn U Cocaine Metab Screen U Cannabinoids Screen 03/02/18 03/02/18 03/02/18 18:15 18:15 20:00 WBC RBC Hgb Hct MCV MCH MCHC Differential RDW Plt Count MPV Neutrophils % Lymphocytes % Monocytes % Eosinophils % Basophils % Sodium Potassium Chloride Carbon Dioxide Anion Gap BUN Creatinine Est GFR ( Amer) Est GFR (Non-Af Amer) BUN/Creatinine Ratio Glucose Calcium Phosphorus Magnesium Total Bilirubin AST ALT Alkaline Phosphatase Troponin I 0.01 B-Natriuretic Peptide 6.0 Total Protein Albumin Globulin Albumin/Globulin Ratio Urine Source Urine Color Urine Clarity Urine pH Ur Specific [place] Urine Protein Urine Glucose (UA) Urine Ketones Urine Blood Urine Nitrate Urine Bilirubin Urine Urobilinogen Ur Leukocyte Esterase Urine RBC Urine WBC Ur Epithelial Cells Amorphous Sediment Urine Bacteria Urine Test Urine Opiates Screen NEGATIVE Urine Methadone Screen NEGATIVE Ur Barbiturates Screen NEGATIVE Ur Tricyclics Screen NEGATIVE Ur Phencyclidine Scrn NEGATIVE Amphetamines Screen NEGATIVE U Methamphetamines Scrn NEGATIVE U Benzodiazepines Scrn NEGATIVE U Cocaine Metab Screen NEGATIVE U Cannabinoids Screen NEGATIVE 03/02/18 20:06 WBC RBC Hgb Hct MCV MCH MCHC Differential RDW Plt Count MPV Neutrophils % Lymphocytes % Monocytes % Eosinophils % Basophils % Sodium Potassium Chloride Carbon Dioxide Anion Gap BUN Creatinine Est GFR ( Amer) Est GFR (Non-Af Amer) BUN/Creatinine Ratio Glucose Calcium Phosphorus Magnesium Total Bilirubin AST ALT Alkaline Phosphatase Troponin I B-Natriuretic Peptide Total Protein Albumin Globulin Albumin/Globulin Ratio Urine Source Urine Color Urine Clarity Urine pH Ur Specific [place] Urine Protein Urine Glucose (UA) Urine Ketones Urine Blood Urine Nitrate Urine Bilirubin Urine Urobilinogen Ur Leukocyte Esterase Urine RBC Urine WBC Ur Epithelial Cells Amorphous Sediment Urine Bacteria Urine Test NEGATIVE Urine Opiates Screen Urine Methadone Screen Ur Barbiturates Screen Ur Tricyclics Screen Ur Phencyclidine Scrn Amphetamines Screen U Methamphetamines Scrn U Benzodiazepines Scrn U Cocaine Metab Screen U Cannabinoids Screen <Miki Adams - Last Filed: 03/02/18 20:54> ED Assessment - Assessment General Assessment: EKG from <Beckie Marvin - Last Filed: 03/06/18 10:53> ED Septic Shock - . Is Septic Shock (SBP<90, OR Lactate>4 mmol\L) present?: No - <6hrs of presentation: Vital Signs: Vital Signs - 8 hr 03/02/18 18:21 Temp 98.3 F HR 87 RR 21 BP 118/71 O2 Sat % 98 <Miki Adams - Last Filed: 03/02/18 20:54> - . Is Septic Shock (SBP<90, OR Lactate>4 mmol\L) present?: No - <6hrs of presentation: Vital Signs: Vital Signs - 8 hr 03/02/18 18:21 Temp 98.3 F HR 87 RR 21 BP 118/71 O2 Sat % 98 <Beckie Marvin - Last Filed: 03/06/18 10:53> ED Reassessment (Disposition) - Reassessment Reassessment:: pt awake cxr showed rt sided haziness possible infiltrate infiltrate pt ordered to get zosyn - Patient Disposition Discharge/Transfer:: Acute Care w/in this hosp Condition at Disposition:: Stable <Miki Adams - Last Filed: 03/02/18 20:54> - Diagnosis Diagnosis:: Suspected pneumonia Unspecified intellectual disabilities h/o seizures Epilepsy Spastic quadriplegic cerebral palsy pseudobulbar affect h/o heart failure - Patient Disposition Discharge/Transfer:: Acute Care w/in this hosp Condition at Disposition:: Stable <Beckie Marvin - Last Filed: 03/06/18 10:53>
[2018-03-02 19:23] LABS: PLATELET COUNT 82 Th/cmm (150-400)
[2018-03-02 19:36] LABS: ALBUMIN 3.4 gm/dL (3.7-5.3); ALKALINE PHOSPHATASE 186 U/L (34-104); ANION GAP 14.9 (7.0-16.0); BILIRUBIN,TOTAL 0.3 mg/dL (0.3-1.0); BUN - UREA NITROGEN 15 mg/dL (7-25); CALCIUM SERUM 9.3 mg/dL (8.6-10.3); CARBON DIOXIDE 22.2 mEq/L (21.0-31.0); CHLORIDE 101 mEq/L (98-107); CREATININE - SERUM 0.4 mg/dL (0.6-1.2); GFR AFRICAN-AMERICAN > 60.0 ml/min (>90); GFR NON AFRICAN-AMERICAN > 60.0 ml/min; GLUCOSE 79 mg/dL (70-105); MAGNESIUM 2.1 mg/dL (1.9-2.7); PHOSPHOROUS 3.5 mg/dL (2.5-5.0); POTASSIUM SERUM 4.1 mEq/L (3.5-5.1); SGOT 26 U/L (13-39); SGPT/ALT 11 U/L (7-52); SODIUM SERUM 134 mEq/L (136-145); TOTAL PROTEIN,SERUM 6.7 gm/dL (6.0-8.3)
[2018-03-02 20:15] LABS: URINE BILIRUBIN NEGATIVE (NEGATIVE); URINE BLOOD NEGATIVE (NEGATIVE); URINE GLUCOSE (UA) NEGATIVE (NEGATIVE); URINE KETONE NEGATIVE (NEGATIVE); URINE LEUKOCYTE ESTERASE NEGATIVE (NEGATIVE); URINE NITRATE NEGATIVE (NEGATIVE); URINE PROTEIN NEGATIVE (NEGATIVE); URINE SOURCE CATH; URINE UROBILINOGEN 0.2 E.U./dL (0.2 - 1.0)
[2018-03-02 20:17] LABS: URINE CLARITY CLEAR (CLEAR); URINE COLOR YELLOW; URINE MICROSCOPIC INDICATED? YES
[2018-03-02 20:27] LABS: AMPHETAMINE URINE NEGATIVE (NEGATIVE); BARBITURATES URINE NEGATIVE (NEGATIVE); BENZODIAZEPINES QUAL URINE NEGATIVE (NEGATIVE); CANNABINOID THC NEGATIVE (NEGATIVE); COCAINE METABOLITE QUAL URINE NEGATIVE (NEGATIVE); METHADONE URINE NEGATIVE (NEGATIVE); METHAMPHETAMINES QUAL URINE NEGATIVE (NEGATIVE); OPIATES (MORPHINE) QUAL. URINE NEGATIVE (NEGATIVE); PHENCYCLIDINE (PCP) URINE NEGATIVE (NEGATIVE); TRICYCLICS (TCA) QUAL. URINE NEGATIVE (NEGATIVE)
[2018-03-02 20:28] LABS: URINE EPITHELIAL CELLS FEW /lpf (FEW); URINE RBC 0-2 /hpf (0-5)
[2018-03-02 20:29] LABS: URINE AMORPHOUS SEDIMENT MODERATE PHOSPHATES (NONE SEEN); URINE BACTERIA FEW /hpf (NONE SEEN)
[2018-03-02] MEDS ORDERED: Piperacillin Sodium/Tazobact 3.375 gm Vial IV ONE (21:17)
[2018-03-02] MEDS ORDERED: Albuterol/Ipratropium Neb 3 ML AERS HHN PRN (23:36)
[2018-03-02] MEDS: Sodium Chloride 0.9% 1,000 ML IV SCH (23:40)
[2018-03-03 07:07] LABS: ANION GAP 11.2 (7.0-16.0); BUN - UREA NITROGEN 11 mg/dL (7-25); CALCIUM SERUM 9.2 mg/dL (8.6-10.3); CARBON DIOXIDE 25.6 mEq/L (21.0-31.0); CHLORIDE 105 mEq/L (98-107); CREATININE - SERUM 0.5 mg/dL (0.6-1.2); GFR AFRICAN-AMERICAN > 60.0 ml/min (>90); GFR NON AFRICAN-AMERICAN > 60.0 ml/min; GLUCOSE 108 mg/dL (70-105); POTASSIUM SERUM 3.8 mEq/L (3.5-5.1); SODIUM SERUM 138 mEq/L (136-145)
[2018-03-03 07:13] LABS: % BASOPHILS 0.6 % (0.0-2.0); % EOSINOPHILS 5.5 % (0.0-5.0); % LYMPHOCYTES 26.6 % (20.0-50.0); % MONOCYTES 6.5 % (2.0-10.0); % NEUTROPHILS 60.8 % (40.0-80.0); EOSINOPHILE ABSOLUTE 0.3 Th/cmm (0.1-0.4); HEMATOCRIT 41.5 % (41.0-60); HEMOGLOBIN 13.8 gm/dL (12-16); LYMPHOCYTE ABSOLUTE 1.4 Th/cmm (1.5-3.0); MEAN CELL VOLUME 82.4 fl (81-100); MEAN CORPUSCULAR HEMOGLOBIN 27.3 pg (27.0-31.0); MEAN CORPUSCULAR HGB CONC 33.1 pg (28.0-36.0); MEAN PLATELET VOLUME 9.4 fl; MONOCYTE ABSOLUTE 0.4 Th/cmm (0.3-1.0); NEUTROPHILE ABSOLUTE 3.3 Th/cmm (1.8-8.0); RED BLOOD COUNT 5.04 Mil/cmm (3.80-5.10); RED CELL DISTRIBUTION WIDTH 12.5 % (11.5-20.0); WHITE BLOOD COUNT 5.4 Th/cmm (4.8-10.8)
[2018-03-03 08:08] LABS: PLATELET COUNT 257 Th/cmm (150-400)
[2018-03-03] MEDS: cefTRIAXone 1 GM in Sodium Chloride 0.9% 50 ML IV SCH (08:48)
[2018-03-03] MEDS ORDERED: Magnesium Hydroxide (MOM) 30 mL UDC GT PRN (10:06)
[2018-03-03] MEDS ORDERED: Fleet Enema 135 mL RC PRN (10:06)
[2018-03-03] MEDS ORDERED: Albuterol/Ipratropium Neb 3 ML AERS HHN PRN (10:06)
[2018-03-03] MEDS ORDERED: Non-Formulary Item 1 EA (Amino Acids/Protein Hydrolys [Pro-Stat Awc Liquid] 30 ML) GT SCH (10:15)
[2018-03-03] MEDS: Azithromycin 500 MG in Sodium Chloride 0.9% 250 ML IV SCH (10:27)
[2018-03-03] MEDS: Levetiracetam 500 mg/5mL 5mL UDSyr *for ORAL USE ONLY GT SCH ×2 (10:43→16:52)
[2018-03-03] MEDS: Multivitamin w/ Minerals 15 mL UDC GT SCH (10:43)
[2018-03-03] MEDS: carBAMazepine 200 mg/10 mL UDC GT SCH ×2 (10:44→16:52)
[2018-03-03] MEDS: Pantoprazole 40 mg/Packet GT SCH (10:45)
[2018-03-03] MEDS: Albuterol/Ipratropium Neb 3 ML AERS HHN SCH ×3 (11:07→22:00)
--- NOTE | 2018-03-03 12:25 | Diagnostic Imaging Report ---
Portable chest x-ray HISTORY: Shortness of breath The heart size difficult with portable technique, a poor inspiration, and a severe scoliosis. Compared with the prior exam of 05/20/2017, a linear density is noted in the right lower lobe. Findings may be associated with scarring or subsegmental atelectasis. No other focal processes. No hilar or mediastinal abnormalities. IMPRESSION: 1. Linear density within the right lower lobe. The finding may be associated with scarring or subsegmental atelectasis. No other acute abnormalities
[2018-03-03] MEDS ORDERED: Acetylcysteine 10% 10 ML VIAL HHN SCH (15:00)
--- NOTE | 2018-03-03 15:08 | History & Physical ---
ADMIT DATE: 03/03/2018 CHIEF COMPLAINT: Cough and congestion. HISTORY OF PRESENT ILLNESS: This is a 37-year-old female who resides at [facility] under the care of Dr. Kenney who was last admitted to this facility on 05/13/2017 for fever, sepsis, at that time also hypoxic respiratory failure and pneumonia. The patient was apparently noted to have congestion and cough for the last couple of days and was transferred to the ED where pertinent findings include a chest x-ray showing possible right-sided pneumonia per ER physician. The patient has been admitted to the medical/surgical floor for further management and care. The patient has a history of mental retardation, cerebral palsy, spastic quadriplegia, history of seizure disorder, dysphagia with a PEG placement. There are no reports of fevers noted per transfer records and no fevers reported since been admitted. PAST MEDICAL HISTORY: As noted above. PAST SURGICAL HISTORY: Include PEG. FAMILY HISTORY: Likely noncontributory to this admission. ALLERGIES: NKDA. OUTPATIENT MEDICATIONS: Tylenol 650 via G-tube q.4 hours p.r.n. for fever, pain, Mucomyst 20% solution q.6 hours, DuoNeb q.4 p.r.n. for SOB, liquid amino acids and proteins every day, baclofen 10 t.i.d., Dulcolax 10 mg q.96 hours p.r.n. for constipation, calcium carbonate 1250 mg every day, Tegretol 500 mg b.i.d., vitamin D3 400 units t.i.d., Fleet enema 135 mL per rectum q.96 hours for severe constipation, Vimpat 75 mg b.i.d., Keppra 1000 mg b.i.d., loratadine 10 mg every day, milk of magnesia 30 mL q.72 hours, multivitamins and minerals 1 tab every day, Protonix 40 mg every day. REVIEW OF SYSTEMS: Not able to be done given patient's condition. PHYSICAL EXAMINATION: VITAL SIGNS: Temperature 97.7, afebrile, pulse 80, respirations 12-16, blood pressure 101/87 with sats of 97-98% on room air. GENERAL: Developmentally delayed female who appears to be well nourished and currently in no distress. She is awake, but is not able to follow commands. HEAD AND NECK: Appears to be normocephalic, atraumatic. Pupils are reactive to light. Extraocular movements are intact. Oropharynx is moist and clear. NECK: There is no JVD or LAD. CARDIOVASCULAR: Regular rate and rhythm with distant sounds. LUNGS: There are some mild crackles on both bases upon deep inspiration. No audible wheezing. ABDOMEN: Soft, supple, nontender, nondistended. There is a PEG tube in place and there is normoactive bowel sounds. LOWER EXTREMITIES: There is no pedal edema. NEUROLOGIC: Difficult to assess, but appears to be at her baseline. LABORATORY DATA: White count 9.1, H and H 14/44 with a platelet count of 82. Sodium 134, potassium 4.1, chloride 101, CO2 22, BUN 15, creatinine 0.4, glucose 79, phosphorus 3.5, mag 2.1. LFTs were essentially within normal limits. Alkaline phosphatase 186. Troponins negative x 1 set. BNP 6, albumin 3.4. UA was essentially within normal limits. U-tox was normal. DIAGNOSTICS: EKG done in the ER showing sinus rhythm of 82. There are no ST elevations or depressions and chest x-ray done. Please refer to HPI. Possible right-sided infiltrate. ASSESSMENT: 1. Rule out pneumonia (with aspiration pneumonia being a high potential) vs. acute bronchitis. 2. History of previous pneumonia and sepsis. 3. History of dysphagia, status post PEG placement. 4. Thrombocytopenia. 5. History of mental retardation/cerebral palsy with spastic quadriplegia. 6. History of seizure disorder. PLAN: The patient has been admitted to the medical floor given that she has been clinically stable. The patient has been placed on Rocephin and Zithromax and was given a one-time dose of Zosyn at the ED. She will be kept on pulmonary supportive care including DuoNeb q.4 hours while awake p.r.n. and supplemental oxygen as needed. The patient has been placed on aspiration and seizure precautions and she will be kept on her home medications as scheduled. A followup x-ray will be done in the morning and a Pulmonary consult has been asked for further management and care. JOB# [id number] [facility]
[2018-03-03] MEDS: Sodium Chloride 0.9% 1,000 ML IV SCH (16:03)
[2018-03-04] MEDS: Albuterol/Ipratropium Neb 3 ML AERS HHN SCH ×4 (06:50→19:55)
[2018-03-04 06:58] LABS: % BASOPHILS 0.7 % (0.0-2.0); % LYMPHOCYTES 23.3 % (20.0-50.0); % MONOCYTES 7.2 % (2.0-10.0); % NEUTROPHILS 64.8 % (40.0-80.0); EOSINOPHILE ABSOLUTE 0.2 Th/cmm (0.1-0.4); HEMATOCRIT 36.2 % (41.0-60); HEMOGLOBIN 12.1 gm/dL (12-16); LYMPHOCYTE ABSOLUTE 1.4 Th/cmm (1.5-3.0); MEAN CELL VOLUME 83.6 fl (81-100); MEAN CORPUSCULAR HEMOGLOBIN 27.8 pg (27.0-31.0); MEAN CORPUSCULAR HGB CONC 33.3 pg (28.0-36.0); MEAN PLATELET VOLUME 9.8 fl; MONOCYTE ABSOLUTE 0.4 Th/cmm (0.3-1.0); NEUTROPHILE ABSOLUTE 4.1 Th/cmm (1.8-8.0); PLATELET COUNT 244 Th/cmm (150-400); RED BLOOD COUNT 4.34 Mil/cmm (3.80-5.10); RED CELL DISTRIBUTION WIDTH 12.6 % (11.5-20.0); WHITE BLOOD COUNT 6.1 Th/cmm (4.8-10.8)
[2018-03-04 07:19] LABS: ANION GAP 10.6 (7.0-16.0); BUN - UREA NITROGEN 12 mg/dL (7-25); CALCIUM SERUM 7.8 mg/dL (8.6-10.3); CARBON DIOXIDE 24.3 mEq/L (21.0-31.0); CHLORIDE 108 mEq/L (98-107); CREATININE - SERUM 0.5 mg/dL (0.6-1.2); GFR AFRICAN-AMERICAN > 60.0 ml/min (>90); GFR NON AFRICAN-AMERICAN > 60.0 ml/min; GLUCOSE 109 mg/dL (70-105); MAGNESIUM 2.1 mg/dL (1.9-2.7); POTASSIUM SERUM 3.9 mEq/L (3.5-5.1); SODIUM SERUM 139 mEq/L (136-145)
--- NOTE | 2018-03-04 08:04 | Consultation ---
DATE OF CONSULTATION: 03/03/2018 REFERRING PHYSICIAN: Dr. Toure. Thank you very much, Dr. Toure for this consultation. HISTORY OF PRESENT ILLNESS: This is a 37-year-old female with history of mental disability known to me from previous admission, presented with cough and congestion, who was admitted for possible pneumonia. The patient appears to be comfortable, not in acute distress, on oxygen and nebulizer treatment. OTHER PAST MEDICAL HISTORY: As above. Dysphagia, cerebral palsy, spastic quadriplegia, seizure disorder. REVIEW OF SYSTEMS: Unable to obtain because of the patient's condition. PHYSICAL EXAMINATION: GENERAL: The patient is awake, not in acute distress. VITAL SIGNS: Temperature is 98.2, pulse 87, respiration is 16, blood pressure 90/45, saturation 99%. HEENT: Atraumatic, normocephalic. Pupils react to light and accommodation. Ears, nose and throat normal. NECK: Supple. No JVD. CHEST: There are good breath sounds, few rhonchi bilaterally. HEART: Regular. ABDOMEN: Soft. EXTREMITIES: No edema. LABORATORY DATA: WBC 5.4, hemoglobin 13.8, hematocrit 41.5, platelets 257. Sodium is 138, potassium 3.8, BUN is 11, creatinine 0.5. The chest x-ray, no obvious infiltrates, atelectasis to the right base. IMPRESSION: 1. This is a 37-year-old female, possible early pneumonia. 2. Dysphagia. 3. Seizure disorder. PLAN: 1. Antibiotics. 2. Nebulizer treatment. 3. Follow up chest x-ray and aspiration precaution. I will follow the patient with you. JOB# [id number]
[2018-03-04] MEDS: Pantoprazole 40 mg/Packet GT SCH (08:19)
[2018-03-04] MEDS: carBAMazepine 200 mg/10 mL UDC GT SCH ×2 (08:19→16:21)
[2018-03-04] MEDS: Levetiracetam 500 mg/5mL 5mL UDSyr *for ORAL USE ONLY GT SCH ×2 (08:19→16:21)
[2018-03-04] MEDS: Multivitamin w/ Minerals 15 mL UDC GT SCH (08:28)
[2018-03-04] MEDS: cefTRIAXone 1 GM in Sodium Chloride 0.9% 50 ML IV SCH (08:34)
[2018-03-04] MEDS: Sodium Chloride 0.9% 1,000 ML IV SCH (08:34)
--- NOTE | 2018-03-04 08:56 | Diagnostic Imaging Report ---
CHEST X-RAY: AP view INDICATION: PICC line placement COMPARISON: 03/02/2018 FINDINGS: Right PICC line is in place with tip in SVC. Right basal subsegmental atelectasis versus scarring is noted. No focal consolidation or pleural effusions. Mild cardiomegaly is noted. Severe spinal scoliosis is noted. IMPRESSION: Interval right PICC line placement with tip in SVC. Right basal subsegmental atelectasis versus scarring.
--- NOTE | 2018-03-04 09:04 | Diagnostic Imaging Report ---
CHEST X-RAY: AP view INDICATION: Pneumonia COMPARISON: 03/03/2018 FINDINGS: Right PICC line is stable. Mild congestive changes are seen with right basal atelectasis versus less likely infiltrate. Mild cardiomegaly is noted. IMPRESSION: Mild congestive changes with right basal atelectasis versus less likely infiltrate.
[2018-03-04] MEDS: Azithromycin 500 MG in Sodium Chloride 0.9% 250 ML IV SCH (09:21)
[2018-03-05] MEDS: Sodium Chloride 0.9% 1,000 ML IV SCH ×2 (01:55→14:42)
[2018-03-05 06:18] LABS: % BASOPHILS 1.4 % (0.0-2.0); % EOSINOPHILS 7.5 % (0.0-5.0); % LYMPHOCYTES 20.1 % (20.0-50.0); % MONOCYTES 5.4 % (2.0-10.0); % NEUTROPHILS 65.6 % (40.0-80.0); BASOPHILE ABSOLUTE 0.1 Th/cumm (0-0.2); EOSINOPHILE ABSOLUTE 0.4 Th/cmm (0.1-0.4); HEMATOCRIT 34.5 % (41.0-60); HEMOGLOBIN 11.5 gm/dL (12-16); LYMPHOCYTE ABSOLUTE 1.1 Th/cmm (1.5-3.0); MEAN CELL VOLUME 83.5 fl (81-100); MEAN CORPUSCULAR HEMOGLOBIN 27.8 pg (27.0-31.0); MEAN CORPUSCULAR HGB CONC 33.3 pg (28.0-36.0); MEAN PLATELET VOLUME 9.1 fl; MONOCYTE ABSOLUTE 0.3 Th/cmm (0.3-1.0); NEUTROPHILE ABSOLUTE 3.6 Th/cmm (1.8-8.0); PLATELET COUNT 191 Th/cmm (150-400); RED BLOOD COUNT 4.14 Mil/cmm (3.80-5.10); RED CELL DISTRIBUTION WIDTH 12.9 % (11.5-20.0); WHITE BLOOD COUNT 5.5 Th/cmm (4.8-10.8)
[2018-03-05 06:29] LABS: ANION GAP 9.1 (7.0-16.0); BUN - UREA NITROGEN 7 mg/dL (7-25); CALCIUM SERUM 7.8 mg/dL (8.6-10.3); CARBON DIOXIDE 25.7 mEq/L (21.0-31.0); CHLORIDE 107 mEq/L (98-107); CREATININE - SERUM 0.4 mg/dL (0.6-1.2); GFR AFRICAN-AMERICAN > 60.0 ml/min (>90); GFR NON AFRICAN-AMERICAN > 60.0 ml/min; GLUCOSE 107 mg/dL (70-105); MAGNESIUM 2.3 mg/dL (1.9-2.7); POTASSIUM SERUM 3.8 mEq/L (3.5-5.1); SODIUM SERUM 138 mEq/L (136-145)
[2018-03-05] MEDS: Albuterol/Ipratropium Neb 3 ML AERS HHN SCH ×4 (07:19→19:48)
[2018-03-05] MEDS: Pantoprazole 40 mg/Packet GT SCH (09:08)
[2018-03-05] MEDS: Levetiracetam 500 mg/5mL 5mL UDSyr *for ORAL USE ONLY GT SCH ×2 (09:08→17:03)
[2018-03-05] MEDS: Multivitamin w/ Minerals 15 mL UDC GT SCH (09:08)
[2018-03-05] MEDS: carBAMazepine 200 mg/10 mL UDC GT SCH ×2 (09:08→17:04)
[2018-03-05] MEDS: cefTRIAXone 1 GM in Sodium Chloride 0.9% 50 ML IV SCH (09:09)
[2018-03-05] MEDS: Azithromycin 500 MG in Sodium Chloride 0.9% 250 ML IV SCH (09:10)
[2018-03-06] MEDS: Sodium Chloride 0.9% 1,000 ML IV SCH (04:19)
[2018-03-06] MEDS: Albuterol/Ipratropium Neb 3 ML AERS HHN SCH ×3 (07:03→14:16)
--- NOTE | 2018-03-06 07:42 | Diagnostic Imaging Report ---
Portable chest x-ray HISTORY: Shortness of breath, cough Compared with the prior exam of 03/04/2018, the heart is enlarged. There are new linear densities in the right lower lobe probably related to subsegmental atelectasis. Early infiltrate/pneumonia cannot be excluded. IMPRESSION: 1. Linear densities right lung base that may be associated with subsegmental atelectasis. Early pneumonia cannot be excluded. Clinical correlation and follow-up recommended.
[2018-03-06] MEDS: cefTRIAXone 1 GM in Sodium Chloride 0.9% 50 ML IV SCH (08:48)
[2018-03-06] MEDS: Levetiracetam 500 mg/5mL 5mL UDSyr *for ORAL USE ONLY GT SCH (08:49)
[2018-03-06] MEDS: carBAMazepine 200 mg/10 mL UDC GT SCH (08:49)
[2018-03-06] MEDS: Multivitamin w/ Minerals 15 mL UDC GT SCH (08:50)
[2018-03-06] MEDS: Pantoprazole 40 mg/Packet GT SCH (08:51)
[2018-03-06] MEDS: Azithromycin 500 MG in Sodium Chloride 0.9% 250 ML IV SCH (09:00)
--- NOTE | 2018-03-16 20:29 | Discharge Summary ---
DATE OF DISCHARGE: 03/06/2018 ADMITTING DIAGNOSES: 1. Acute bronchitis versus pneumonia. 2. History of previous pneumonia and sepsis. SECONDARY DIAGNOSES: Include mental retardation/cerebral palsy with spastic quadriplegia, history of seizure disorder, history of dysphagia with PEG placement. DISCHARGE DIAGNOSIS: 1. Right lower lobe pneumonia/atelectasis-clinically improved. CONSULTS: Dr. Garcia, Pulmonary. MAJOR PROCEDURES: PICC line placement. BRIEF HOSPITAL COURSE: This is a 37-year-old female who resides at [facility] last admitted to this facility around 04/2017 for fever, sepsis and at that time also hypoxic respiratory failure and pneumonia. The patient was noted to have congestion and cough for the last 2 days prior to being transferred to the ER and given her comorbidities, she was transferred to the ED where chest x-ray showed possible right-sided infiltrate. She was admitted to [facility], placed on IV antibiotics, supplemental oxygen and pulmonary supportive care. She was also seen by pulmonary sec reporting consultant given her previous history of complicated pneumonias (possible aspiration pneumonia). Her vital signs and her labs remained stable throughout her hospital stay. She did show improvement with less congestion and cough noted and a followup x-ray on 03/06/2018 showed linear densities in the right lung base, which may be associated with subsegmental atelectasis, with early pneumonia cannot be excluded. DISCHARGE MEDICATIONS: DuoNeb q.4 hours while awake and p.r.n., acetylcysteine 10% via handheld nebulizers q. 8 hours, Zithromax 500 mg IV q. 24, Rocephin 1 g q. 24, Claritin 10 mg every day, bisacodyl 10 mg q. 96 hours p.r.n. for constipation, Keppra 1000 mg b.i.d., baclofen 10 mg t.i.d., milk of magnesia p.r.n., Protonix 40 mg every day, Tegretol 500 mg b.i.d., multivitamins and minerals daily, Tums 1250 mg daily, Vimpat 75 b.i.d., vitamin D 400 international units t.i.d. DISPOSITION: The patient was transferred to [facility] for completion of IV antibiotics. [facility]# [id number] [facility]
== END 2018-03-06 16:35 | DRG 193 ==
LOC: ER 17:35 → MSI 21:00
PROVIDERS: ADMIT Internal Medicine; ATTEND Internal Medicine
PROC: 02HV33Z Insertion of Infusion Device into Superior Vena Cava, Percutaneous Approach (ICD-10-PCS; principal; 2018-03-03)
DX: J18.9 Pneumonia, unspecified organism (principal); G80.0 Spastic quadriplegic cerebral palsy; F79 Unspecified intellectual disabilities; G40.909 Epilepsy, unspecified, not intractable, without status epilepticus; F48.2 Pseudobulbar affect; I50.9 Heart failure, unspecified; R13.10 Dysphagia, unspecified; Z93.1 Gastrostomy status; D69.6 Thrombocytopenia, unspecified
CPT/HCPCS: 36415-UA; 71045-TC; 80048-TC; 80053-TC; 80307; 81001-TC; 81025-TC; 83735-TC; 83880-TC; 84100-TC; 84484-TC; 85025-TC; 87070; 93005; 94667; 94668; 94760; 96374; J0456; J0696; J1940; J2543; J7030; Z7610

== ENCOUNTER 2018-07-09 09:46 | Emergency (ER) | payer MEDICARE, MEDICAID ==
--- NOTE | 2018-07-09 10:36 | ED Physician Chart ---
ED Chief Complaint/HPI - Patient Information Date Seen:: 07/09/18 Time Seen:: 10:25 Chief Complaint:: G-tube placement History of Present Illness:: At the patient's extended care facility her G-tube came out. A Solis catheter was placed in the stoma. Allergies:: Allergies Allergy/AdvReac Type Severity Reaction Status Date / Time No Known Drug Allergies Allergy Verified 07/09/18 10:02 Vitals:: Vital Signs - 8 hr 07/09/18 09:49 Temp 98.8 F HR 94 RR 18 BP 105/69 O2 Sat % 97 Historian:: Medical Records Review:: Transfer documents Reviewed ED Review of Systems - Review of Systems General/Constitutional: No fever, No chills, No weight loss, No weakness, No diaphoresis, No edema, No loss of appetite Skin: No skin lesions, No rash, No bruising Head: No headache, No light-headedness Eyes: No loss of vision, No pain, No diplopia ENT: No earache, No nasal drainage, No sore throat, No tinnitus Neck: No neck pain, No swelling, No thyromegaly, No stiffness, No mass noted Cardio Vascular: No chest pain, No palpitations, No PND, No orthopnea, No edema Pulmonary: No SOB, No cough, No sputum, No wheezing GI: No nausea, No vomiting, No diarrhea, No pain, No melena, No hematochezia, No constipation, No hematemesis, Other (G-tube replacement) G/U: No dysuria, No frequency, No hematuria Musculoskeletal: No bone or joint pain, No back pain, No muscle pain Endocrine: No polyuria, No polydipsia Psychiatric: No prior psych history, No depression, No anxiety, No suicidal ideation Hematopoietic: No bruising, No lymphadenopathy Allergic/Immuno: No urticaria, No angioedema Neurological: No syncope, No focal symptoms, No weakness, No paresthesia, No headache, No seizure, No dizziness, No confusion, No vertigo ED Past Medical History - Past Medical History Past Medical History: CHF (overdose cellulitis left eye), Seizures, Other ( cerebral palsy; spastic quadriplegia) Family History: Other (unavailable) Social History: Care Facility Surgical History: PEG/GTube Medication: Reviewed Family Medical History - Family Member Mother History Unknown: Yes ED Physical Exam - Physical Examination General/Constitutional: No distress Other Gen/Cons comments:: Nonverbal Eyes: Lids, conjuctiva normal, PERRL Other Skin comments:: About 6 cm of erythema surrounding G-tube stoma ENMT: External ears, nose nl Respiratory: Nl effort/Exclusion, Clear to Auscultation Cardio Vascular: RRR, No murmur, gallop, rubs GI: No tenderness/rebounding/guarding, No organomegaly : No CVA tenderness Other Extremities comments:: Contractured Neuro/Psych: No focal deficits ED Labs/Radiology/EKG Results - Radiology Results Results: KUB after injection of Gastrografin showed contrast material to be in the GI tract; 4 out of 4 scoliosis also noted ED Assessment - Assessment General Assessment: I notified Dr. Kessler of the apparent cellulitis surrounding the G-tube stoma and he suggested a prescription for Keflex ED Septic Shock - . Is Septic Shock (SBP<90, OR Lactate>4 mmol\L) present?: No - <6hrs of presentation: Vital Signs: Vital Signs - 8 hr 07/09/18 09:49 Temp 98.8 F HR 94 RR 18 BP 105/69 O2 Sat % 97 ED Reassessment (Disposition) - Reassessment Reassessment Condition:: Improved - Diagnosis Diagnosis:: G-tube replacement; cerebral palsy; spastic quadriplegia; severe scoliosis; abdominal wall cellulitis - Aftercare/Follow up Instructions Aftercare/Follow-Up Instructions:: Refer to Discharge Instructions Medication Prescribed:: Keflex 500 mg 4 times a day for 10 days - Patient Disposition Discharge/Transfer:: [facility] - [facility]F Spoke to:: Eleuterio Toure
[2018-07-09] MEDS ORDERED: Diatrizoate Meglumine/Diatri 30 mL Sol ONE (10:41)
--- NOTE | 2018-07-09 11:00 | Diagnostic Imaging Report ---
Upper GI with Gastrografin HISTORY: G-tube confirmation COMPARISON: None FINDINGS: Ncr Operator view demonstrates gas distended loops of bowel. Moderate stool is noted. Severe scoliosis is noted. There is evidence of prior cholecystectomy. The second image demonstrates contrast opacification of the stomach IMPRESSION: Intraluminal confirmation of patient's percutaneous gastric feeding tube.
== END 2018-07-09 11:50 ==
LOC: ER 09:46
DX: L03.311 Cellulitis of abdominal wall (principal); G80.9 Cerebral palsy, unspecified; M41.9 Scoliosis, unspecified; I50.9 Heart failure, unspecified; Z43.1 Encounter for attention to gastrostomy
CPT/HCPCS: Z7502; Z7610